=== PATIENT | male | born 1970 | race Two or more races ===

== ENCOUNTER 2020-04-21 23:21 | Emergency (ER) | payer SELFPAY ==
[2020-04-22] MEDS ORDERED: ACETAMINOPHEN 325 MG TABLET PO ONE (00:21)
[2020-04-22] MEDS ORDERED: OXYCODONE-ACETAMINOPHEN 5-325 MG TABLET PO ONE (02:53)
--- NOTE | 2020-04-22 02:58 | ER Document Report ---
ED Hand/Wrist Injury - General Chief Complaint: Wrist Injury Stated Complaint: LEFT ARM SWOLLEN Time Seen by Provider: 04/22/20 02:49 Primary Care Provider: JOSE CHATMAN MD [ACTIVE STAFF] - Follow up as needed Notes: CHIEF COMPLAINT: Left wrist injury HPI: 49-year-old male presenting with left wrist injury. Patient was going up a ladder that was placed in mulch and it tipped to the side and he fell landing with his left wrist extended. Patient denies elbow injury denies shoulder injury denies head injury complains of pain to the distal wrist. ROS: See HPI - all other systems were reviewed and are otherwise negative Constitutional: no fever Eyes: no drainage, no blurred vision ENT: no runny nose, no sore throat Cardiovascular: no chest pain Resp: no SOB, no cough GI: no vomiting, no diarrhea, no abdominal pain : no dysuria Integumentary: no rash Allergy: no hives Musculoskeletal: + extremity pain or swelling Neurological: no numbness/tingling, no weakness MEDICATIONS: I agree with the patient medications as charted by the RN. ALLERGIES: I agree with the allergies as charted by the RN. PAST MEDICAL HISTORY/PAST SURGICAL HISTORY: Reviewed and agree as charted by RN. SOCIAL HISTORY: Reviewed and agree as charted by RN. FAMILY HISTORY: No significant familial comorbid conditions directly related to patient complaint EXAM: Reviewed vital signs as charted by RN. CONSTITUTIONAL: Alert and oriented and responds appropriately to questions. Well-appearing; well-nourished HEAD: Normocephalic; atraumatic EYES: PERRL; Conjunctivae clear, sclerae non-icteric ENT: normal nose; no rhinorrhea; moist mucous membranes NECK: Supple without meningismus; non-tender; no cervical lymphadenopathy, no masses CARD: Capillary refill less than 3 seconds; symmetric distal pulses RESP: Normal chest excursion without splinting or tachypnea ABD/GI: non-distended. BACK: The back appears normal and is non-tender to palpation, there is no CVA tenderness EXT: There is some limited flexion extension of the left hand at the wrist. There is soft tissue swelling with bruising noted. Radial and ulnar pulses are present in the left wrist. Sensation is intact in the fingertips with capillary refill less than 3 seconds. Patient is able to flex and extend the fingertip some limited abduction of the left thumb SKIN: Normal color for age and race; warm; dry; good turgor; no acute lesions noted NEURO: Motor and sensory function intact PSYCH: The patient's mood and manner are appropriate. Grooming and personal hygiene are appropriate. MDM: 49-year-old male with left wrist fracture, comminuted intra-articular fracture on my review of his x-ray of the left wrist. Will place in a volar splint for comfort, follow-up orthopedics - Related Data Allergies/Adverse Reactions: aspirin Allergy (Verified 04/22/20 00:16) Past Medical History - Social History Smoking Status: Current Every Day Smoker Frequency of alcohol use: None Drug Abuse: None Family History: Reviewed & Not Pertinent Patient has homicidal ideation: No Physical Exam - Vital signs Vitals: Temp Pulse Resp BP Pulse Ox 98.3 F 88 20 165/81 H 94 04/21/20 23:28 04/21/20 23:28 04/21/20 23:28 04/21/20 23:28 04/21/20 23:28 Course - Vital Signs Vital signs: Temp Pulse Resp BP Pulse Ox 98.3 F 88 20 165/81 H 94 04/22/20 00:16 04/21/20 23:28 04/21/20 23:28 04/21/20 23:28 04/21/20 23:28 Procedures - Immobilization Left Distal Wrist Time completed: 02:56 Pre-Proc Neuro Vasc Exam: Normal Immobilizer type: Volar splint, Sling Performed by: PCT Post-Proc Neuro Vasc Exam: Normal, Unchanged from pre-exam Alignment checked and good: Yes Discharge - Discharge Clinical Impression: Fall Qualifiers: Encounter type: initial encounter Qualified Code(s): W19.XXXA - Unspecified fall, initial encounter Fracture of radius, distal, left, closed Qualifiers: Encounter type: initial encounter Fracture morphology: other intra-articular Qualified Code(s): S52.572A - Other intraarticular fracture of lower end of left radius, initial encounter for closed fracture Condition: Stable Disposition: HOME, SELF-CARE Instructions: Splint Precautions ([facility]) Additional Instructions: 1. splint for comfort 2. medicines for pain as prescribed, no driving on narcotics 3. ice the hand three times daily for swelling for 10 minutes at a time, do not place ice directly on skin 4. follow up with orthopedics for further evaluation and treatment, call for appt. Prescriptions: Oxycodone HCl/Acetaminophen [Percocet 5-325 mg Tablet] 1 tab PO Q4H PRN #15 tab PRN Reason: Referrals: JOSE CHATMAN MD [ACTIVE STAFF] - Follow up as needed
[2020-04-22 03:10] VITALS: BP 154/83
--- NOTE | 2020-04-22 03:22 | RADIOLOGY REPORT (SQ) ---
EXAM DESCRIPTION: Left wrist RadLex: XR WRIST 3 OR MORE VIEWS Views: 3 CLINICAL HISTORY: 49 years Male; FALL ; COMPARISON: None. FINDINGS: Multiple fractures extend through the distal radial metaphysis and epiphysis. At least one fracture plane extends to the articular surface of the distal radius. There is minimal displacement/angulation. No acute fracture of the distal ulna, or the carpal bones. IMPRESSION: 1. Multiple acute minimally displaced fractures of the distal radius
== END 2020-04-22 03:19 | disposition home or self-care (01) ==
LOC: ER 23:21
DX: S52.572A Other intraarticular fracture of lower end of left radius, initial encounter for closed fracture (principal); F17.200 Nicotine dependence, unspecified, uncomplicated; W11.XXXA Fall on and from ladder, initial encounter; Z88.6 Allergy status to analgesic agent
CPT/HCPCS: 99283

== ENCOUNTER 2020-05-04 09:36 | Day surgery (SDC) | payer OTHER ==
[~2020-05-04 09:36] MED LIST: CEFAZOLIN 2 GM/D5W RTU 2 GM/50 ML RTUPB IV PRN
[2020-05-04] MEDS ORDERED: CEFAZOLIN 2 GM/D5W RTU 2 GM/50 ML RTUPB IV ONE (10:05)
--- NOTE | 2020-05-04 10:21 | RADIOLOGY REPORT (SQ) ---
EXAM DESCRIPTION: CHEST SINGLE VIEW IMAGES COMPLETED DATE/TIME: 05/04/2020 10:10 am REASON FOR STUDY: PRE OP COMPARISON: None. EXAM PARAMETERS: NUMBER OF VIEWS: One view. TECHNIQUE: Single frontal radiographic view of the chest acquired. RADIATION DOSE: NA LIMITATIONS: None. FINDINGS: LUNGS AND PLEURA: No opacities, masses or pneumothorax. No pleural effusion. MEDIASTINUM AND HILAR STRUCTURES: No masses. Contour normal. HEART AND VASCULAR STRUCTURES: Heart normal in size. Normal vasculature. BONES: No acute findings. HARDWARE: None in the chest. OTHER: No other significant finding. IMPRESSION: 1. NO ACUTE RADIOGRAPHIC FINDING IN THE CHEST. TECHNICAL DOCUMENTATION: JOB ID: [id number] 2010 [employer]- All Rights Reserved Reading location - IP/workstation name: [email or web address]
[2020-05-04 10:27] LABS: APPEARANCE,URINE CLEAR; BILIRUBIN,URINE NEGATIVE (NEGATIVE); COLOR,URINE YELLOW; GLUCOSE, URINE NEGATIVE (NEGATIVE); KETONES,URINE NEGATIVE (NEGATIVE); LEUKOCYTE ESTERASE,URINE NEGATIVE (NEGATIVE); NITRITE,URINE NEGATIVE (NEGATIVE); PROTEIN,URINE NEGATIVE (NEGATIVE); URINE SPECIFIC GRAVITY 1.021; UROBILINOGEN,URINE NEGATIVE mg/dL (<2.0)
[2020-05-04 10:32] LABS: ABSOLUTE BASOPHILS # (AUTO) 0.1 10^3/uL (0.0-0.2); ABSOLUTE EOSINOPHILS # (AUTO) 0.2 10^3/uL (0.0-0.6); ABSOLUTE LYMPHOCYTES (AUTO) 3.3 10^3/uL (0.5-4.7); ABSOLUTE MONOCYTES (AUTO) 0.9 10^3/uL (0.1-1.4); EOSINOPHILS % (AUTO) 1.5 % (0-6); HEMOGLOBIN 16.4 g/dL (13.5-17.0); LYMPHOCYTES % (AUTO) 24.6 % (13-45); MEAN CORPUSCULAR HEMOGLOBIN 29.6 pg (27.0-33.4); MEAN CORPUSCULAR HGB CONC 34.2 g/dL (32.0-36.0); MEAN CORPUSCULAR VOLUME 87 fl (80-97); MONOCYTES % (AUTO) 6.3 % (3-13); PLATELET COUNT 279 10^3/uL (150-450); RED BLOOD COUNT 5.55 10^6/uL (4.35-5.55); RED CELL DISTRIBUTION WIDTH 13.7 % (11.5-14.0); SEGMENTED NEUTROPHILS % (AUTO) 66.6 % (42-78); TOTAL CELLS COUNTED % (AUTO) 100 %; WHITE BLOOD COUNT 13.5 10^3/uL (4.0-10.5)
[2020-05-04 10:52] LABS: ANION GAP 8 (5-19); BLOOD UREA NITROGEN 18 mg/dL (7-20); CALCIUM 9.7 mg/dL (8.4-10.2); CARBON DIOXIDE 26 mmol/L (22-30); CHLORIDE 103 mmol/L (98-107); GLUCOSE 114 mg/dL (75-110); POTASSIUM 4.5 mmol/L (3.6-5.0)
[2020-05-04] MEDS ORDERED: MIDAZOLAM 2 MG/2 ML INJ ONE (11:10)
[2020-05-04] MEDS ORDERED: PROPOFOL INJ 200 MG/20 ML VIAL IV ONE ×2 (11:11→12:58)
[2020-05-04] MEDS ORDERED: ONDANSETRON HCL INJ/PF 4 MG/2 ML SDV ONE (11:11)
[2020-05-04] MEDS ORDERED: PROMETHAZINE HCL INJ 25 MG/1 ML VIAL IV PRN (13:18)
[2020-05-04] MEDS ORDERED: MORPHINE SULFATE 10 MG/ML INJ IV PRN (13:18)
[2020-05-04] MEDS ORDERED: MEPERIDINE HCL/PF INJ 25 MG/1 ML DISP.SYRIN IV PRN (13:18)
[2020-05-04] MEDS ORDERED: FENTANYL CITRATE INJ/PF 100 MCG/2 ML AMPUL IV PRN ×3 (13:18)
--- NOTE | 2020-05-04 13:28 | Discharge Summary ---
Discharge Summary (SDC) - Discharge Final Diagnosis: Left distal radius fracture Date of Surgery: 05/04/20 Discharge Date: 05/04/20 Condition: Good Treatment or Instructions: Elevate left upper extremity on a pillow Discharge Diet: Regular Respiratory Treatments at Home: Incentive Spirometer Report the Following to Your Physician Immediately: Shortness of Breath, Fever over 101 Degrees, Drainage-Foul Smelling
--- NOTE | 2020-05-04 13:31 | Operative Report ---
Operative Report DATE OF SURGERY: 05/04/20 PREOPERATIVE DIAGNOSIS: Left distal radius fracture OPERATION: Open reduction internal fixation left distal radius fracture, intra- articular and comminuted SURGEON: JOSE CHATMAN ANESTHESIA: Other - Regional block ESTIMATED BLOOD LOSS: Minimal PROCEDURE: With the patient supine on the operating table left upper extremities prepped and draped sterile fashion. Limb is elevated for exsanguination tourniquet inflated 250 torr. A standard volar approach to the distal radius is taken between the flexor carpi radialis and the neurovascular bundle. The pronator quadratus is reflected radial. The underlying fracture is identified. It is comminuted but there is a fracture line that extends proximally and ulnarly. This is elevated to allow elevation of the underlying lunate punch injury. This is done with a Bailey elevator under fluoroscopic guidance to affect what seems to be an anatomic articular surface. At this point located part of the fracture was reduced. A [place] titanium volar distal radius plate is applied to the volar surface of the radius and secured with 2 screws proximally and 4 locked screws distally. The fracture reduction and the hardware placement are checked fluoroscopically and felt to be adequate. The tourniquet is deflated and hemostasis obtained with bipolar cautery. The wound is irrigated with bulb lavage. Is soft and closed in layers using Vicryl followed by nylon. A sterile compressive dressing and volar splint were applied and the patient was returned to PACU in satisfactory condition.
[2020-05-04] MEDS ORDERED: FENTANYL CITRATE INJ/PF 100 MCG/2 ML AMPUL ONE (13:49)
--- NOTE | 2020-05-04 14:58 | EKG REPORT ---
SEVERITY:- NORMAL ECG - SINUS RHYTHM : Confirmed by: Ninoska Hanson MD 04-May-2020 14:57:38
--- NOTE | 2020-05-04 16:08 | RADIOLOGY REPORT (SQ) ---
EXAM DESCRIPTION: NO CHG FLUORO; WRIST LEFT 2 VIEWS IMAGES COMPLETED DATE/TIME: 05/04/2020 3:27 pm REASON FOR STUDY: ORIF LEFT WRIST ASSISTED WITH FLUORO IN OR S52.539A COLLES' FRACTURE OF UNSP RADI US, INIT FOR CLOS FX COMPARISON: None. FLUOROSCOPY TIME: 7 seconds 2 images saved to PACS. TECHNIQUE: Intra-operative images acquired during surgical procedure to evaluate progress. NUMBER OF IMAGES: 2 LIMITATIONS: None. FINDINGS: Images from fluoro document placement of a volar compression plate on the distal radius. IMPRESSION: ORIF left wrist. Refer to operative note for further information. COMMENT: Quality ID [id number]: Final reports for procedures using fluoroscopy that document radiation exp osure indices, or exposure time and number of fluorographic images (if radiation exposure indices are not available) Please consult full operative report of the attending physician for description of the procedure. TECHNICAL DOCUMENTATION: JOB ID: [id number] 2010 [employer]- All Rights Reserved Reading location - IP/workstation name: [email or web address]
--- NOTE | 2020-05-04 16:08 | RADIOLOGY REPORT (SQ) ---
EXAM DESCRIPTION: NO CHG FLUORO; WRIST LEFT 2 VIEWS IMAGES COMPLETED DATE/TIME: 05/04/2020 3:27 pm REASON FOR STUDY: ORIF LEFT WRIST ASSISTED WITH FLUORO IN OR S52.539A COLLES' FRACTURE OF UNSP RADI US, INIT FOR CLOS FX COMPARISON: None. FLUOROSCOPY TIME: 7 seconds 2 images saved to PACS. TECHNIQUE: Intra-operative images acquired during surgical procedure to evaluate progress. NUMBER OF IMAGES: 2 LIMITATIONS: None. FINDINGS: Images from fluoro document placement of a volar compression plate on the distal radius. IMPRESSION: ORIF left wrist. Refer to operative note for further information. COMMENT: Quality ID 145: Final reports for procedures using fluoroscopy that document radiation exp osure indices, or exposure time and number of fluorographic images (if radiation exposure indices are not available) Please consult full operative report of the attending physician for description of the procedure. TECHNICAL DOCUMENTATION: JOB ID: [id number] 2010 [employer]- All Rights Reserved Reading location - IP/workstation name: [email or web address]
[2020-05-04 16:14] VITALS: BP 131/86
== END 2020-05-04 15:40 | disposition home or self-care (01) ==
LOC: OROUT 09:36
PROVIDERS: ATTEND Orthopaedic Surgery
DX: S52.532A Colles' fracture of left radius, initial encounter for closed fracture (principal); W11.XXXA Fall on and from ladder, initial encounter; F17.210 Nicotine dependence, cigarettes, uncomplicated; Z03.818 Encounter for observation for suspected exposure to other biological agents ruled out
CPT/HCPCS: 36415; 85025; 87635; 80048; 81001; 71045; 73100; 93005; 93010; 64415; 76942; 01830; 25608; J2250; J3010; J2405; J2704; J0690; C9803